=== PATIENT | male | born 1975 | race Caucasian/White ===

== ENCOUNTER 2018-03-21 20:08 | Emergency (ER) | payer OTHER ==
[2018-03-21] MEDS ORDERED: ONDANSETRON HCL/PF 4 MG/ 2ML VIAL IVP ONE (20:11)
--- NOTE | 2018-03-21 20:11 | ED Physician Documentation ---
Nausea/Vomiting/Diarrhea - HISTORIAN Historian: patient - HPI Stated Complaint: nausea/vomiting/diarrhea Chief Complaint: Nausea,Vomiting,Diarrhea Onset: minutes (35) Duration: sudden-onset Last known Well Code/Unknown Code: Unknown Timing: sudden onset Context: bad food (he feels is the [place] he ate ) Severity: moderate Further Comments: yes (he states he ate [place] food about 30 min ago he started with abdominal cramps and instant diarrhea and vomiting) - Associated Symptoms Vomiting: frequent Diarrhea: copious Abdominal Pain: cramping - ROS CONST: none CVS/RESP: denies: shortness of breath, cough GI/: none - PAST HX Past History: none Surgeries/Procedures: cholecystectomy Immunizations: UTD Allergies/Adverse Reactions: Allergies Allergy/AdvReac Type Severity Reaction Status Date / Time Penicillins Allergy Intermediate Verified 03/21/18 20:27 acetaminophen [From Percocet] AdvReac Severe passes out Verified 03/21/18 20:29 oxycodone [From Percocet] AdvReac Severe passes out Verified 03/21/18 20:29 Home Medications: Ambulatory Orders Medication Instructions Recorded Citalopram Hydrobromide 20 mg PO HS 03/21/18 [Citalopram HBr] Clonazepam 2 mg PO BID 03/21/18 Mupirocin [Bactroban] 2 film TOP PRN 03/21/18 Sulfamethoxazole/Trimethoprim 800 mg PO BID 03/21/18 [Sulfamethoxazole-Tmp Ds Tablet] Zolpidem Tartrate 5 mg pe PO DAILY 03/21/18 - SOCIAL HX Smoking History: non-smoker Alcohol Use: none Drug Use: none - FAMILY HX Family History: none - VITAL SIGNS Vital Signs: Vital Signs Temp Pulse Resp BP Pulse Ox 98.8 F 70 18 112/86 98 03/21/18 20:15 03/21/18 20:15 03/21/18 20:15 03/21/18 20:15 03/21/18 20:15 - REVIEWED ASSESSMENTS Nursing Assessment Reviewed: Yes Vitals Reviewed: Yes Progress - Progress Progress: 2050: Nausea is improved. Cramps remain. DG 2144: requesting not have the second liter and go home. He is feeling better. DG ED Results Lab/Radiology - Lab Results Lab Results: Lab Results 03/21/18 03/21/18 20:18 20:18 WBC 6.90 K/ul K/ul (4.00-12.00) RBC 5.72 M/ul H M/ul (3.90-5.20) Hgb 17.0 g/dL g/dL (12.0-18.0) Hct 48.3 % % (37.0-53.0) MCV 84.4 fl fl (80.0-100.0) MCH 29.6 pg pg (28.0-34.0) MCHC 35.1 g/dL g/dL (30.0-36.0) RDW 13.2 % % (11.3-14.3) Plt Count 447 K/mm3 H K/mm3 (130-400) Neut % (Auto) 66.4 % % (39.0-79.0) Lymph % (Auto) 22.5 % % (16.0-50.0) [place] % (Auto) 6.1 % % (0.0-11.0) Eos % (Auto) 1.8 % % (0.0-6.8) Baso % (Auto) 0.5 (0.0-1.5) Neut # (Auto) 4.6 # k/uL # k/uL (1.4-7.7) Lymph # (Auto) 1.5 # k/uL # k/uL (0.6-4.0) [place] # (Auto) 0.4 # k/uL # k/uL (0.0-0.9) Eos # (Auto) 0.1 # k/uL # k/uL (0.0-0.6) Baso # (Auto) 0.0 # k/uL # k/uL (0.0-0.5) Reactive Lymphs % 2.7 % % (0.0-5.0) Reactive Lymphs # 0.2 # k/uL # k/uL (0.0-0.8) Sodium 141 mmol/L mmol/L (136-145) Potassium 3.3 mmol/L L mmol/L (3.5-5.1) Chloride 104 mmol/L mmol/L (98-107) Carbon Dioxide 21 mmol/L L mmol/L (22-30) BUN 12 mg/dL mg/dL (9-20) Creatinine 1.30 mg/dL H mg/dL (0.66-1.25) Est GFR ( Amer) > 60 (60 - ) Est GFR (Non-Af Amer) > 60 (60 - ) Glucose 138 mg/dL H mg/dL (74-106) Calcium 9.4 mg/dL mg/dL (8.4-10.2) Total Bilirubin 0.6 mg/dL mg/dL (0.2-1.3) AST 27 U/L U/L (15-46) ALT 42 U/L U/L (13-69) Alkaline Phosphatase 67 U/L U/L (38-126) Total Protein 8.4 g/dL H g/dL (6.3-8.2) Albumin 5.1 g/dL H g/dL (3.5-5.0) - Orders Orders: ED Orders Category Date Time Status IV Started NOW Care 03/21/18 20:12 Active CBC/PLATELET/DIFF Routine Lab 03/21/18 20:18 Completed CMP Routine Lab 03/21/18 20:18 Completed UDS [DRUG SCREEN URINE MEDICAL ONLY] Routine Lab 03/21/18 Ordered 0.9 % Sodium Chloride [Normal Saline] 1,000 ml Med 03/21/18 20:30 Ordered IV Q10H 0.9 % Sodium Chloride [Normal Saline] 1,000 ml Med 03/21/18 21:25 Active IV Q1H Dicyclomine HCl [Bentyl] Med 03/21/18 20:43 Discontinued 20 mg PO NOW ONE Ondansetron HCl/Pf [Zofran 4 mg/2 ml] Med 03/21/18 20:11 Discontinued 4 mg IVP NOW ONE Nausea Physical Exam - EXAM General Appearance: alert, mild distress EENT: eye inspection normal Neck: normal inspection Respiratory: no resp distress, chest non-tender, breath sounds normal CVS: reg rate & rhythm, heart sounds normal, equal pulses, no murmur Abdomen: tenderness, guarding, abnml bowel sounds (hyperactive ). No: rebound Back: non-tender Skin: warm/dry, normal color Extremities: non-tender, normal range of motion, no evidence of injury, no edema Neuro/Psych: oriented X3, CN's nml as tested, motor nml, sensation nml, mood/affect nml, cognition normal Discharge Clincal Impression: Food poisoning Qualifiers: Encounter type: initial encounter Injury intent: accidental or unintentional Qualified Code(s): T62.91XA - Toxic effect of unspecified noxious substance eaten as food, accidental (unintentional), initial encounter Referrals: Lucio Parikh MD [Primary Care Provider] - 2 Days Additional Instructions: 1. [place] diet 2. Clear liquids - pedilite or gatorade - discussed potassium rich foods 3. Zofran 4 mg Take 1 by mouth every 8 hours as needed for nausea 4. Bentyl 20 take 1 by mouth every 6 hours as needed for abdominal cramps 5. See PCP in 2-4 days if no improvement 6. Return to ER for any concerns Condition: Stable Disposition: 01 HOME, SELF-CARE Decision to Admit: NO Date of Decison to Admit: 03/21/18 Decision Time: 21:49
[2018-03-21 20:23] LABS: BASOPHILS % 0.5 (0.0-1.5); EOSINOPHILS % 1.8 % (0.0-6.8); MEAN CORPUSCULAR HEMOGLOBIN 29.6 pg (28.0-34.0); MEAN CORPUSCULAR VOLUME 84.4 fl (80.0-100.0); MONOCYTES % 6.1 % (0.0-11.0); NEUTROPHILS # 4.6 # k/uL (1.4-7.7)
[2018-03-21] MEDS ORDERED: 0.9 % SODIUM CHLORIDE 1,000 ML IV SCH (20:30)
[2018-03-21] MEDS ORDERED: DICYCLOMINE HCL 20 MG TABLET PO ONE (20:43)
[2018-03-21 20:46] LABS: eGFR (African) > 60; eGFR (Non-African) > 60
[2018-03-21] MEDS ORDERED: 0.9 % SODIUM CHLORIDE 1,000 ML IV ONE (21:25)
[2018-03-21 22:30] VITALS: BP 113/69
[2018-03-22 06:42] LABS: APPEARANCE,URINE CLEAR (CLEAR); COLOR,URINE YELLOW (YELLOW); OCCULT BLOOD,URINE NEGATIVE (NEGATIVE)
[2018-03-22 06:46] LABS: CANNABINOIDS NEGATIVE ng/mL (< 50); METHYLENEDIOXYMETHAMPHETAMINE NEGATIVE ng/mL (<500)
== END 2018-03-21 22:15 | disposition home or self-care (01) ==
LOC: ED 20:08
DX: R11.2 Nausea with vomiting, unspecified (principal); R19.7 Diarrhea, unspecified; T62.91XA Toxic effect of unspecified noxious substance eaten as food, accidental (unintentional), initial encounter; X58.XXXA Exposure to other specified factors, initial encounter; Y92.9 Unspecified place or not applicable; Y93.9 Activity, unspecified; Y99.9 Unspecified external cause status
CPT/HCPCS: 80053; 80377; 81002; 85025; J2405; J7030; 96365; 96375; G0481; S1016